=== PATIENT | female | born 1990 ===

== ENCOUNTER 2021-03-09 03:05 | Inpatient (IN) ==
[~2021-03-09 03:05] MED LIST: *HR* Nalbuphine 10 MG/ML AMPUL IV PRN; Famotidine 20 MG/2 ML VIAL IVP PRN; Metoclopramide 10 MG/2 ML VIAL IVP PRN; Naloxone 0.4 MG/ML INJ IVP PRN; Ondansetron 4 MG/2 ML VIAL IVP PRN; Penicillin G Potassium 2,500,000 UNIT/105 ML MLS IVPB SCH; Penicillin G Potassium 5,000,000 UNIT in 0.9 % Sodium Chloride Mini Bag 100 ML IVPB ONE
[2021-03-09 03:39] LABS: Basophils % 0.3 %; Eosinophils # 0.1 K/mcL (0.0-0.6); Eosinophils % 0.8 %; Hematocrit 38.5 % (35.3-44.9); Hemoglobin 12.9 g/dL (11.5-15.4); Immature Granulocytes % 0.6 % (0-4); Mean Corpuscular HGB Conc 33.5 g/dL (31.6-35.5); Mean Corpuscular Hemoglobin 29.3 pg (28.0-33.3); Mean Corpuscular Volume 87.5 fL (83.0-100.0); Mean Platelet Volume 11.5 fL (9.4-12.4); Monocytes # 0.9 K/mcL (0.0-1.3); Monocytes % 7.4 %; Neutrophils # 9.2 K/mcL (1.6-8.9); Platelet Count 223 K/mcL (140-400); Red Cell Distribution Width 13.4 % (11.5-14.5); Segmented Neutrophils % 74.9 %; White Blood Count 12.4 K/mcL (4.3-11.1)
[2021-03-09 03:44] LABS: Amphetamine Screen,Urine Negative ng/mL (Cutoff=1000); Barbiturate Screen,Urine Negative ng/mL (Cutoff=200); Benzodiazepines Screen,Urine Negative ng/mL (Cutoff=200); Cannabinoid Screen,Urine Negative ng/mL (Cutoff = 50); Cocaine Screen,Urine Negative ng/mL (Cutoff= 300); Opiate Screen,Urine Negative ng/mL (Cutoff=300); Phencyclidine Screen,Urine Negative ng/mL (Cutoff=25)
[2021-03-09] MEDS ORDERED: Penicillin G Potassium 5,000,000 UNIT in 0.9 % Sodium Chloride Mini Bag 100 ML IVPB ONE (04:00)
[2021-03-09 04:07] LABS: Influenza A PCR Negative (Negative); Influenza B PCR Negative (Negative); Resp. Syncytial Virus PCR Negative (Negative); SARS-CoV-2 by PCR (In House) Negative (Negative)
[2021-03-09] MEDS: Ringers Solution, Lactated 1,000 ML IVC SCH ×2 (04:16→09:27)
[2021-03-09] MEDS ORDERED: Oxytocin 20 units/ LR 1000 mL 20 UNIT/1,000 ML BAG IVC SCH ×3 (05:00→16:39)
[2021-03-09] MEDS ORDERED: EPHEDrine 50 MG/ML VIAL IVP PRN (06:16)
[2021-03-09] MEDS ORDERED: Epidural Premix (fent/bupiv) 110 ML EP SCH (06:30)
[2021-03-09] MEDS ORDERED: miSOPROStoL 25 MCG TABLET PO PRN (09:45)
[2021-03-09] MEDS ORDERED: Lidocaine -MPF 2% 5 ML VIAL ONE ×2 (12:26→12:38)
[2021-03-09] MEDS ORDERED: *HR* Succinylcholine 200 MG/10 ML VIAL IVP ONE (12:26)
[2021-03-09] MEDS ORDERED: *HR* FentaNYL (PF) 100 MCG/2 ML VIAL ONE (12:26)
[2021-03-09] MEDS ORDERED: *HR* Propofol 200 MG/20 ML VIAL IVP ONE (12:26)
[2021-03-09] MEDS ORDERED: *HR* Midazolam HCl 2 MG/2 ML VIAL ONE (12:26)
[2021-03-09] MEDS ORDERED: *HR* Rocuronium Bromide 50 MG/5 ML VIAL ONE (12:26)
[2021-03-09] MEDS ORDERED: Ondansetron 4 MG/2 ML VIAL ONE (12:26)
[2021-03-09] MEDS ORDERED: Ringers Solution, Lactated 1,000 ML ONE ×2 (12:46→13:17)
[2021-03-09] MEDS ORDERED: Acetaminophen IV 1,000 MG/100 ML BAG IVPB ONE (12:53)
[2021-03-09] MEDS ORDERED: Methylergonovine 0.2 MG/ML AMPUL IM ONE (12:59)
[2021-03-09 13:25] LABS: Basophils % 0.1 %; Hematocrit 29.8 % (35.3-44.9); Immature Granulocytes % 0.4 % (0-4); Lymphocytes # 1.1 K/mcL (0.6-4.6); Lymphocytes % 6.1 %; Mean Corpuscular HGB Conc 33.2 g/dL (31.6-35.5); Mean Corpuscular Hemoglobin 29.2 pg (28.0-33.3); Mean Corpuscular Volume 87.9 fL (83.0-100.0); Mean Platelet Volume 11.6 fL (9.4-12.4); Monocytes % 5.8 %; Neutrophils # 15.5 K/mcL (1.6-8.9); Platelet Count 195 K/mcL (140-400); Red Blood Count 3.39 M/mcL (3.82-4.97); Red Cell Distribution Width 13.3 % (11.5-14.5); Segmented Neutrophils % 87.6 %; White Blood Count 17.6 K/mcL (4.3-11.1)
[2021-03-09 13:26] LABS: Hemoglobin 9.9 g/dL (11.5-15.4)
[2021-03-09] MEDS ORDERED: Albumin Human 5% 12.5 GM/250 ML IV.SOLN IVPB SCH (13:30)
[2021-03-09] MEDS ORDERED: 0.9 % Sodium Chloride 500 ML ONE (13:41)
[2021-03-09] MEDS ORDERED: Rho Immune Globulin 1,500 UNIT SYRINGE IM PRN ×2 (14:03→16:39)
[2021-03-09] MEDS ORDERED: *HR* OxyCODONE Immed Rel 5 MG TABLET PO PRN ×2 (14:03→16:39)
[2021-03-09] MEDS ORDERED: Lanolin 7 G OINT...G. TP PRN (14:03)
[2021-03-09] MEDS ORDERED: Measles/Mumps/Rubella Vacc 0.5 ML VIAL SQ PRN ×2 (14:03→16:39)
[2021-03-09] MEDS ORDERED: Ondansetron ODT 4 MG TAB.RAPDIS SL PRN (14:03)
[2021-03-09] MEDS ORDERED: Benzocaine/Menthol 56 GM AEROSOL SPRAY TP PRN ×2 (14:03→16:39)
[2021-03-09] MEDS ORDERED: Acetaminophen 325 MG TABLET PO SCH (14:15)
[2021-03-09] MEDS ORDERED: Ondansetron 4 MG/2 ML VIAL IVP PRN ×2 (14:25→16:39)
[2021-03-09] MEDS ORDERED: *HR* HYDROmorphone PF 0.5 MG/0.5 ML SYRINGE IVP PRN (14:25)
[2021-03-09] MEDS ORDERED: *HR* Meperidine 25 MG/ML SYRINGE IVP PRN (14:25)
[2021-03-09] MEDS ORDERED: metroNIDAZOLE 500 MG TABLET PO SCH (15:00)
[2021-03-09] MEDS ORDERED: cephALEXin 500 MG CAPSULE PO SCH ×2 (15:00→21:00)
[2021-03-09] MEDS ORDERED: Naloxone 0.4 MG/ML INJ IVP PRN (16:39)
[2021-03-09] MEDS ORDERED: Ringers Solution, Lactated 1,000 ML IVC SCH (16:39)
[2021-03-09] MEDS ORDERED: Ibuprofen 600 MG TABLET PO SCH (17:03)
[2021-03-09] MEDS: Ibuprofen 600 MG TABLET PO SCH (18:09)
[2021-03-09 18:17] LABS: Basophils % 0.1 %; Hematocrit 31.6 % (35.3-44.9); Hemoglobin 10.6 g/dL (11.5-15.4); Immature Granulocytes % 0.5 % (0-4); Lymphocytes # 1.3 K/mcL (0.6-4.6); Lymphocytes % 5.4 %; Mean Corpuscular HGB Conc 33.5 g/dL (31.6-35.5); Mean Corpuscular Hemoglobin 28.8 pg (28.0-33.3); Mean Corpuscular Volume 85.9 fL (83.0-100.0); Mean Platelet Volume 11.7 fL (9.4-12.4); Monocytes # 0.6 K/mcL (0.0-1.3); Monocytes % 2.6 %; Neutrophils # 21.5 K/mcL (1.6-8.9); Platelet Count 187 K/mcL (140-400); Red Blood Count 3.68 M/mcL (3.82-4.97); Red Cell Distribution Width 14.1 % (11.5-14.5); Segmented Neutrophils % 91.4 %; White Blood Count 23.5 K/mcL (4.3-11.1)
[2021-03-09] MEDS: Lanolin 7 G OINT...G. TP PRN (20:21)
[2021-03-09] MEDS: Acetaminophen 325 MG TABLET PO SCH (20:21)
[2021-03-09] MEDS: metroNIDAZOLE 500 MG TABLET PO SCH (20:22)
[2021-03-10 03:06] VITALS: O2SAT 98
[2021-03-10 03:12] LABS: Basophils % 0.2 %; Eosinophils # 0.1 K/mcL (0.0-0.6); Eosinophils % 0.5 %; Hematocrit 24.2 % (35.3-44.9); Immature Granulocytes % 0.6 % (0-4); Lymphocytes # 2.5 K/mcL (0.6-4.6); Lymphocytes % 14.9 %; Mean Corpuscular HGB Conc 34.7 g/dL (31.6-35.5); Mean Corpuscular Hemoglobin 30.2 pg (28.0-33.3); Mean Corpuscular Volume 87.1 fL (83.0-100.0); Mean Platelet Volume 11.5 fL (9.4-12.4); Monocytes # 1.4 K/mcL (0.0-1.3); Monocytes % 8.1 %; Neutrophils # 12.9 K/mcL (1.6-8.9); Platelet Count 159 K/mcL (140-400); Red Blood Count 2.78 M/mcL (3.82-4.97); Red Cell Distribution Width 14.8 % (11.5-14.5); Segmented Neutrophils % 75.7 %
[2021-03-10 03:20] LABS: Hemoglobin 8.4 g/dL (11.5-15.4)
[2021-03-10 07:01] VITALS: BP 81/46; PULSE 87; TEMP 98.2
[2021-03-10] MEDS: Lanolin 7 G OINT...G. TP PRN (07:54)
[2021-03-10] MEDS: metroNIDAZOLE 500 MG TABLET PO SCH (07:55)
[2021-03-10] MEDS: Ibuprofen 600 MG TABLET PO SCH (07:56)
[2021-03-10] MEDS: Acetaminophen 325 MG TABLET PO SCH (07:56)
[2021-03-10] MEDS ORDERED: Prenatal Vit/FA 1 EACH TABLET PO SCH ×2 (09:00)
== END 2021-03-10 13:00 | disposition home or self-care (01) | DRG 806 ==
LOC: 1NENULAB → 1NENUOBS 16:23
PROVIDERS: ADMIT Advanced Practice Midwife; ATTEND Advanced Practice Midwife